=== PATIENT | male | born 1975 ===

== ENCOUNTER 2018-06-17 20:25 | Emergency (ER) | payer SELFPAY ==
[2018-06-17 20:30] VITALS: BMI 23.6
--- NOTE | 2018-06-17 20:43 | ED PDOC ---
Arrival/HPI - General Chief Complaint: Alcohol Ingestion Time Seen by Provider: 06/17/18 20:33 Historian: Patient, Police - History of Present Illness Narrative History of Present Illness (Text): 06/17/18 20:39 46 year old male, with unknown past medical history, presents to the emergency department by [employer], for public intoxication. Police state [place]. Patient is uncooperative and cannot be verbally redirected. Patient had to be restrained to facilitate medical evaluation. HPI and ROS limited due to patient intoxication and lack of cooperation. Time/Duration: Prior to Arrival Symptom Course: Unchanged Context: Street Past Medical History - Provider Review Nursing Documentation Reviewed: Yes - Psychiatric Hx Substance Use: No Family/Social History - Physician Review Nursing Documentation Reviewed: Yes Family/Social History: No Known Family HX Smoking Status: Heavy Smoker > 10 Cigarettes Daily Hx Alcohol Use: Yes Frequency of alcohol use: Few days per week Hx Substance Use: No Allergies/Home Meds Allergies/Adverse Reactions: Allergies No Known Allergies Allergy (Verified 06/17/18 20:30) Home Medications: Home Meds Medication Instructions Recorded Confirmed Unobtainable 06/17/18 06/17/18 Review of Systems - Physician Review All systems were reviewed & negative as marked: Yes - Review of Systems Systems not reviewed;Unavailable: Intoxicated Physical Exam - Physical Exam Narrative Physical Exam (Text): 06/17/18 20:44 Gen: VS reviewed, awake, alert, appears intoxicated. ENT: normal pharynx. Eye: EOMI, PERRL. Neck: no JVD, supple, no adenopathy. CV: regular rate, regular rhythm, no rubs, no murmur, no gallops, S1, S2, pulses equal and strong. Pulm: no distress, clear to auscultation, no wheeze, no rhonchi, breath sounds equal, no rales. Abd: soft, nontender, no guarding, no rebound, no rigidity, normal bowel sounds. Ext: no edema. Skin: Small laceration noted on palm or right hand, no active bleeding. Psych: Intoxicated. Neuro: oriented x 3, CN2-12 intact grossly, motor intact, sensation intact. Mental Status: Positive for: Alert and Oriented X 3 Medical Decision Making ED Course and Treatment: 06/17/18 20:46 Impression: 46 year old male presents for public intoxication. Plan: -- Fingerstick -- Restraint -- Reassess and disposition Prior Visits: Notes and results from previous visits were reviewed. Progress Notes: 06/17/18 20:46 06/18/18 06:32 pt is awake and alert, clear speech and steady gait, no s/s of alcohol withdrawal - Scribe Statement The provider has reviewed the documentation as recorded by the Scribe [place] Provider Scribe Attestation: All medical record entries made by the Scribe were at my direction and personally dictated by me. I have reviewed the chart and agree that the record accurately reflects my personal performance of the history, physical exam, medical decision making, and the department course for this patient. I have also personally directed, reviewed, and agree with the discharge instructions and disposition. Disposition/Present on Arrival - Present on Arrival Any Indicators Present on Arrival: No History of DVT/PE: No History of Uncontrolled Diabetes: No Urinary Catheter: No History of Decub. Ulcer: No History Surgical Site Infection Following: None - Disposition Have Diagnosis and Disposition been Completed?: Yes Diagnosis: Alcohol intoxication Disposition: HOME/ ROUTINE Disposition Time: 06:33 Patient Plan: Discharge Condition: STABLE Discharge Instructions (ExitCare): Alcohol Use - When Is Drinking a Problem? Forms: [employer] (Ukrainian)
[2018-06-18 06:41] VITALS: RESP 18; TEMP 97.8
[2018-06-18 06:42] VITALS: BP 118/68; PULSE 71; O2SAT 97
--- NOTE | 2018-06-18 10:15 | RAD ---
PROCEDURE: Right Hand Radiographs. HISTORY: pain, focus 1st and 2nd digit COMPARISON: None. FINDINGS: BONES: Normal. No fracture. JOINTS: Normal. No osteoarthritic changes. SOFT TISSUES: Normal. OTHER FINDINGS: None. IMPRESSION: Normal right hand radiographs.
== END 2018-06-18 07:02 | disposition home or self-care (01) ==
LOC: MERGE 20:25 → UNMERGE 20:25 → ED 20:25
DX: F10.129 Alcohol abuse with intoxication, unspecified (principal); F17.210 Nicotine dependence, cigarettes, uncomplicated
CPT/HCPCS: 73130; 96372; 99284; J3486